=== PATIENT | male | born 1985 | race Caucasian/White ===

== ENCOUNTER 2023-02-16 09:57 | Emergency (ER) | payer SELFPAY ==
[~2023-02-16] VITALS: Ht 185.4 cm; Wt 205.9 kg
[2023-02-16 10:01] VITALS: BP 173/89; PULSE 81; RESP 17; TEMP 97.6; O2SAT 96
--- NOTE | 2023-02-16 10:10 | NUR ---
pt ambulatory to bed 09
--- NOTE | 2023-02-16 10:16 | NUR ---
MD PETERSEN AT BEDSIDE
[2023-02-16] MEDS ORDERED: KETOROLAC 15 MG/ML VIAL IM ONE (10:25)
[2023-02-16 10:33] VITALS: O2SAT 96
--- NOTE | 2023-02-16 10:33 | NUR ---
38YO MALE PT C/O PRESSURED CHEST PAIN XYESTERDAY. REPORTS SUDDEN INTERMITTENT EPISODES W/ RADIATION TO BACK. +NUMBING IN L ARM. DENIES N/V/D, PREVIOUS S/S, SOB OR TAKING MEDICATION. PT AAOX4, HOB POSITIONED PER COMFORT. ON [employer]. DENIES CP AT THIS TIME HX:DENIES NKA
[2023-02-16 11:07] LABS: BASOPHILS % (AUTO) 0.5 % (0.0-2.0); EOSINOPHILS # (AUTO) 0.3 K/uL (0-0.4); EOSINOPHILS % (AUTO) 2.8 % (0.0-4.0); HEMATOCRIT 43.8 % (36-52); HEMOGLOBIN 14.6 g/dL (12.0-18.0); LYMPHOCYTES % (AUTO) 21.7 % (20.5-51.1); MEAN CORPUSCULAR HEMOGLOBIN 30 pg (27-31); MEAN CORPUSCULAR HGB CONC 33 g/dL (33-37); MEAN CORPUSCULAR VOLUME 89.8 fL (80-94); MONOCYTES # (AUTO) 0.8 K/uL (0.8-1.0); MONOCYTES % (AUTO) 8.3 % (1.7-9.3); NEUTROPHILS # (AUTO) 6.2 K/uL (1.8-7.7); NEUTROPHILS % (AUTO) 66.7 % (42.2-75.2); PLATELET COUNT (AUTO) 308 K/uL (140-450); RED BLOOD CELL COUNT(AUTO) 4.88 MIL/uL (4.20-6.10); RED CELL DISTRIBUTION WIDTH 14.7 % (11.6-13.7); WHITE BLOOD COUNT (AUTO) 9.3 K/uL (4.8-10.8)
[2023-02-16 11:14] LABS: ALBUMIN 3.3 g/dL (3.4-5.0); ANION GAP 14.4 (8-16); ASPARTATE AMINOTRANSFERASE 50 U/L (15-37); CARBON DIOXIDE 23.1 mmol/L (21-32); CHLORIDE 106 mmol/L (98-107); CREATININE 0.7 mg/dL (0.6-1.3); GFR ARICAN-AMERICAN 163 mL/min (>90); GLUCOSE 109 mg/dL (74-106); POTASSIUM 3.5 mmol/L (3.5-5.1); SODIUM SERUM 140 mmol/L (136-145); TOTAL BILIRUBIN 0.7 mg/dL (0.0-1.0); UREA NITROGEN, BLOOD 15 mg/dL (7-18)
[2023-02-16] MEDS ORDERED: MECLIZINE 25 MG TAB PO ONE (11:40)
[2023-02-16] MEDS ORDERED: IBUP-2213 PO (11:44)
[2023-02-16] MEDS ORDERED: METH-1681 PO (11:44)
--- NOTE | 2023-02-16 11:50 | NUR ---
Patient discharged with v/s stable. Written and verbal after care instructions given and explained. Patient verbalized understanding. Ambulatory with steady gait. All questions addressed prior to discharge. Advised to follow up with PMD.
== END 2023-02-16 11:49 | disposition home or self-care (01) ==
LOC: MED 09:57
DX: R07.9 Chest pain, unspecified (principal); R42 Dizziness and giddiness; Z79.899 Other long term (current) drug therapy
CPT/HCPCS: 36415; 71045; 80053; 84484; 85025; 93005; 99285; J8597; J1885